=== PATIENT | female | born 1995 | race Hispanic/Latino ===

== ENCOUNTER 2016-12-09 18:02 | Emergency (ER) | payer BC ==
[2016-12-09 18:14] VITALS: BP 119/79; PULSE 91; RESP 20; TEMP 97.6; O2SAT 100
[2016-12-09] MEDS ORDERED: Sodium Chloride 0.9% 1,000 ML IV STA (18:20)
--- NOTE | 2016-12-09 18:56 | ED PDOC ---
HPI: Abdomen Time Seen by Provider: 12/09/16 18:20 Chief Complaint (Nursing): Abdominal Pain Chief Complaint (Provider): Abdominal Pain History Per: Patient History/Exam Limitations: no limitations Onset/Duration Of Symptoms: Hrs (since this morning) Outside of [place] travel?: No Current Symptoms Are (Timing): Still Present Context: Other (Drank EtOH last night) Location Of Pain/Discomfort: RUQ, LUQ Quality Of Discomfort: Cramping Associated Symptoms: Vomiting, Other (Retching). denies: Fever, Diarrhea, Urinary Symptoms Additional Complaint(s): 21 year old female presents to ED with complaints of upper abdominal pain since this morning. Describes pain as cramping, and notes that she went out last night and drank alcohol. (+) several episodes of nonbloody vomit and wretching, (-) diarrhea, fever, or urinary symptoms. Patient denies having similar episodes in the past and denies possibility of . PCP: None Last Menstral Period: November 24, 2016 Past Medical History Reviewed: Historical Data, Nursing Documentation, Vital Signs Vital Signs: Last Vital Signs Temp 97.6 F 12/09/16 18:11 Pulse 91 H 12/09/16 18:11 Resp 20 12/09/16 18:11 BP 119/79 12/09/16 18:11 Pulse Ox 100 12/09/16 19:15 - Medical History PMH: Asthma Denies: No Chronic Diseases - Family History Family History: States: Unknown Family Hx - Social History Alcohol: Social - Allergies Allergies/Adverse Reactions: Allergies Allergy/AdvReac Type Severity Reaction Status Date / Time No Known Allergies Allergy Verified 12/09/16 18:11 Review of Systems ROS Statement: Except As Marked, All Systems Reviewed And Found Negative Constitutional: Negative for: Fever Gastrointestinal: Positive for: Vomiting (nonbloody), Abdominal Pain (upper abdominal pain), Other (retching). Negative for: Diarrhea Genitourinary Female: Negative for: Dysuria, Frequency, Incontinence, Hematuria Physical Exam - Reviewed Nursing Documentation Reviewed: Yes Vital Signs Reviewed: Yes - Physical Exam Appears: Positive for: Non-toxic, In Acute Distress (mild painful distress) Skin: Positive for: Normal Color Eye Exam: Positive for: Normal appearance ENT: Positive for: Normal ENT Inspection Cardiovascular/Chest: Positive for: Regular Rate, Rhythm Respiratory: Negative for: Respiratory Distress Gastrointestinal/Abdominal: Positive for: Soft, Tenderness (mild upper abdominal tenderness). Negative for: Guarding Extremity: Positive for: Normal ROM Neurologic/Psych: Positive for: Alert, Oriented - Laboratory Results Result Diagrams: 12/09/16 18:40 - ECG O2 Sat by Pulse Oximetry: 100 (RA) Pulse Ox Interpretation: Normal Medical Decision Making Medical Decision Makin Initial impression: EtOH gastritis with dehydration v pancreatitis v gastroparesis v perforation v gastroenteritis Initial plan: confirm , IV fluids, antiemetics, labs * Labs * HCG qualitative * Lipase * Bentyl 10mg PO * Morphine 2mg IV * NS IV * Pepcid 20mg IV * Zofran Inj 4mg IV * UA * Re-eval Scribe Attestation: Documented by Cherry Mosley acting as a scribe for Corby Zhou III, DO. Scribe Attestation: All medical record entries made by the Scribe were at my direction and personally dictated by me. I have reviewed the chart and agree that the record accurately reflects my personal performance of the history, physical exam, medical decision making, and the department course for this patient. I have also personally directed, reviewed, and agree with the discharge instructions and disposition. Disposition - Clinical Impression Clinical Impression: Abdominal pain, Vomiting - Patient ED Disposition Is Patient to be Admitted: Transfer of Care - Disposition Disposition Time: 19:00 Condition: STABLE Patient Signed Over To: Anuel Verdugo Handoff Comments: pending labs, re-eval dispo r.o pancreatitis/gastritis/other
[2016-12-09 19:04] LABS: BASO % 0.2 % (0.0-2.0); EOS % 0.1 % (0.0-4.0); HEMATOCRIT 45.3 % (34.0-47.0); LYMPH % 9.2 % (20.0-40.0); MEAN CELL VOLUME 89.9 fl (81.0-99.0); MEAN CORPUSCULAR HEMOGLOBIN 29.9 pg (27.0-31.0); MEAN CORPUSCULAR HGB CONC 33.2 g/dL (33.0-37.0); MEAN PLATELET VOLUME 8.6 fl (7.2-11.7); MONO # 0.4 K/uL (0.0-0.8); MONO % 4.1 % (0.0-10.0); NEUT # 9.5 K/uL (1.8-7.0); NEUT % 86.4 % (50.0-75.0); NRBC % 0.1 % (0.0-0.0); PLATELET COUNT 243 K/uL (130-400); WHITE BLOOD COUNT 10.9 K/uL (4.8-10.8)
[2016-12-09 19:44] LABS: ALB/GLOB RATIO 1.8 (1.0-2.1); ALKALINE PHOSPHATASE 83 U/L (38-126); ALT/SGPT 43 U/L (9-52); AST/SGOT 31 U/L (14-36); BILIRUBIN,TOTAL 1.5 mg/dl (0.2-1.3); BLOOD UREA NITROGEN 16 mg/dl (7-17); CALCIUM 9.8 mg/dL (8.4-10.2); CARBON DIOXIDE 21 mmol/L (22-30); CHLORIDE 106 mmol/L (98-107); GFR AFRICAN-AMERICAN > 60; GLUCOSE,RANDOM 87 mg/dL (65-105); LIPASE 25 U/L (23-300); POTASSIUM 4.1 MMOL/L (3.6-5.0); SODIUM 141 mmol/l (132-148); TOTAL PROTEIN 7.9 G/DL (6.3-8.2)
--- NOTE | 2016-12-09 19:58 | ED PDOC ---
- Laboratory Results Result Diagrams: 12/09/16 18:40 12/09/16 18:40 - ECG O2 Sat by Pulse Oximetry: 100 (RA) Medical Decision Making Medical Decision Makin Transfer of care for patient from Dr. Zhou to Dr. Verdugo pending blood work. 2010 Upon re-evaluatoin, patient is feeling better and no longer has abdominal pain. Results have been discussed with patient, and return precautions and colors custodian services have been given, as well as alcohol limitation/cessation information. Patient is medically stable and ready for discharge. Counseling has been provided and patient is in agreement. Return if symptoms persist or acutely worsen. Scribe Attestation: Documented by Cherry Mosley acting as a scribe for Anuel Verdugo MD. Scribe Attestation: All medical record entries made by the Scribe were at my direction and personally dictated by me. I have reviewed the chart and agree that the record accurately reflects my personal performance of the history, physical exam, medical decision making, and the department course for this patient. I have also personally directed, reviewed, and agree with the discharge instructions and disposition. Disposition - Clinical Impression Clinical Impression: Abdominal pain, Vomiting, Alcoholic gastritis - POA Present On Arrival: None - Disposition Referrals: [facility] [Outside] Disposition: Routine/Home Disposition Time: 20:11 Condition: STABLE Prescriptions: Omeprazole 20 mg PO DAILY #30 capsule. Instructions: Gastritis (ED), Abuse of Alcohol (ED)
[2016-12-09 20:09] LABS: RBC URINE 4 /hpf (0-3); URINE BACTERIA FEW (<OCC); URINE BILIRUBIN NEGATIVE (NEGATIVE); URINE BLOOD NEGATIVE (NEGATIVE); URINE COLOR YELLOW (YELLOW); URINE GLUCOSE (UA) NEG (Normal); URINE KETONE 80 mg/dL (NEGATIVE); URINE LEUKOCYTE ESTERASE NEG Leu/uL (Negative); URINE PROTEIN 30 mg/dL (NEGATIVE); URINE UROBILINOGEN 0.2-1.0 mg/dL (0.2-1.0); WBC URINE 3 /hpf (0-5)
[2016-12-09 20:26] LABS: NEUTROPHIL 83 % (42-75); TOTAL CELLS COUNTED 100
[2016-12-09 20:27] LABS: LARGE PLATELETS PRESENT
== END 2016-12-09 20:29 | disposition home or self-care (01) ==
LOC: H.ER 18:02
DX: K29.20 Alcoholic gastritis without bleeding (principal); R10.9 Unspecified abdominal pain; R11.10 Vomiting, unspecified
CPT/HCPCS: 80053; 81003; 81025; 83690; 84703; 85025; 96374; 96375; 99283; J2270; J2405; J7040